=== PATIENT | female | born 1960 | race Caucasian/White ===

== ENCOUNTER → 2017-07-04 | Outpatient (CLI) | payer BC ==
[~2017-07-04] MED LIST: FIBER PO; OMEG10007 PO
--- NOTE | 2017-07-04 14:31 | MAMMOGRAPHY REPORT ---
BILATERAL DIGITAL SCREENING MAMMOGRAM TOMOSYNTHESIS WITH CAD: 07/04/2017 CLINICAL HISTORY: Routine screening. Patient has no complaints. TECHNIQUE: Breast tomosynthesis in addition to standard 2D mammography was performed. Current study was also evaluated with a Computer Aided Detection (CAD) system. COMPARISON: Comparison is made to exams dated: 05/11/2016 mammogram, 03/04/2015 mammogram, 05/16/2013 m ammogram - [facility], 04/25/2012 mammogram, 04/07/2011 mammogram, and 09/11/2009 mamm ogram - [facility]. BREAST COMPOSITION: There are scattered areas of fibroglandular density in both breasts. FINDINGS: There is an area of architectural distortion in the lateral, middle one third of the right breast, best seen on the cc view. No scar marker is seen in the right breast to denote a skin surgi richie scar and suggest prior surgery. Therefore, additional spot compression tomosynthesis views with placement of any scar markers prior to imaging is recommended. Additional targeted ultrasound may be needed. There are diffuse bilateral benign-appearing punctate microcalcifications. No other suspicious mass, architectural distortion or cluster of microcalcifications is seen. IMPRESSION: ACR BI-RADS CATEGORY 0: INCOMPLETE EVALUATION: NEED ADDITIONAL IMAGING EVALUATION The area of architectural distortion in the lateral right breast needs additional evaluation. The patient will be called to schedule an appointment. Approximately 10% of breast cancers are not detected with mammography. A negative mammographic report should not delay biopsy if a clinically suggestive mass is present. Dannielle Hallman M.D. ay/:07/04/2017 12:16:53 Tire Cord Weaver: Pao BRINK,Sindhu, M, [facility] letter sent: Addl Imaging 0 BI-RADS Code: ACR BI-RADS Category 0: Incomplete Evaluation: Need Additional Imaging Evaluation
== END | disposition home or self-care (01) ==
LOC: C.MAMM 11:24
PROVIDERS: ATTEND Family Medicine
DX: Z12.31 Encounter for screening mammogram for malignant neoplasm of breast (principal); N64.89 Other specified disorders of breast

== ENCOUNTER → 2017-07-18 | Outpatient (CLI) | payer BC ==
--- NOTE | 2017-07-18 14:26 | MAMMOGRAPHY REPORT ---
UNILATERAL RIGHT DIGITAL DIAGNOSTIC MAMMOGRAM TOMOSYNTHESIS AND TARGETED RIGHT ULTRASOUND: 07/18/2017 CLINICAL HISTORY: 57-year-old woman called back from screening mammography for a possible area of arc hitectural distortion in the lateral right breast. No prior right breast surgery or surgical abscess drainages. TECHNIQUE: Spot compression right CC and MLO tomosynthesis images were obtained. COMPARISON: Comparison is made to exams dated: 07/04/2017 mammogram, 05/11/2016 mammogram, 03/04/2015 mammogram, 05/16/2013 mammogram - [facility], 04/25/2012 mammogram, and 04/07/2011 [facility]. BREAST COMPOSITION: There are scattered areas of fibroglandular density in the right breast. FINDINGS: There is a persistent subtle area of architectural distortion in the upper outer middle on e third of the right breast, best appreciated on the spot compression CC views (CC tomosynthesis slic e and ). No other definite areas of architectural distortion identified. There are a few scattered benign-appearing calcifications throughout the right breast. Targeted ultrasound was performed in the upper outer quadrant of the right breast was assessed for th e area of distortion. In the 10:30 right breast, 5 cm from the nipple, there is a subtle ill-defined and indistinct mixed echogenicity slightly shadowing lesion which likely represents the area of dist ortion. Ultrasound measurements are difficult to obtain given the ill-defined nature but it measures approximately 10.5 x 6.9 x 8.5 mm. Differential considerations include radial scar and carcinoma. Definitive characterization with an ultrasound-guided core needle biopsy is recommended. It should b e noted that while evaluating this lesion with ultrasound and obtaining measurements, the patient als o reported pain right over this particular lesion. IMPRESSION: ACR BI-RADS CATEGORY 4: SUSPICIOUS, TARGETED ULTRASOUND ACR BI-RADS CATEGORY 4: SUSPICIO US 1. Ultrasound guided core biopsy is recommended for an ill-defined mixed echogenicity partially shad owing lesion in the 10:30 right breast, 5 cm from the nipple, identified on ultrasound, thought to co rrelate with the subtle mammographic distortion. These results and recommendations were discussed with the patient at the time of the exam. She tenta tively scheduled the right breast biopsy prior to leaving our department. Approximately 10% of breast cancers are not detected with mammography. A negative mammographic report should not delay biopsy if a clinically suggestive mass is present. Dannielle Hallman M.D. ay/:07/18/2017 12:45:22 Nail Professional: Megha BRINK(Sindhu)(M), [facility] letter sent: Abnormal 4/5 BI-RADS Code: ACR BI-RADS Category 4: Suspicious Ultrasound BI-RADS: ACR BI-RADS Category 4: Suspici ous
== END | disposition home or self-care (01) ==
LOC: C.MAMM 10:42
PROVIDERS: ATTEND Family Medicine
DX: R92.8 Other abnormal and inconclusive findings on diagnostic imaging of breast (principal); N64.89 Other specified disorders of breast

== ENCOUNTER → 2017-07-26 | Outpatient (CLI) | payer BC ==
--- NOTE | 2017-07-26 08:16 | Discharge Instructions ---
Discharge Instructions Procedure Procedure Date: Jul 26, 2017. Reason for visit: Right Distortion. Discharge Discharge Date: Jul 26, 2017. Discharge Diagnosis: status post breast biopsy Instructions Activity Recommendations: Additional Limitations (see below) Return to School/Work: no limitations Recommended Home Diet: No Limitations Provider Instructions: ACTIVITY RECOMMENDATIONS: * No lifting, pushing, pulling or exercising the affected side for three days. RETURN TO SCHOOL/WORK: * You may return to work/school after the procedure, but do not perform any strenuous activities for 24 to 48 hours. MEDICATIONS: * Tylenol (two 325 mg) every four to six hours if needed for mild pain (if not allergic to Tylenol). DIET: * Resume previous diet. SPECIAL CARE INSTRUCTIONS: * Keep biopsy site dry for 24 hours. May shower after 24 hours, but do not soak (bathe) incision. * May remove Tegaderm (plastic patch) tomorrow AFTER showering. * Leave the steri-strips on for one week. Allow the steri-strips to fall off by themselves. If not off after one week, you may remove them. You may place a Bandaid crosswise over the strips, if desired. * Apply ice 10 minutes on and 10 minutes off as needed. * Wear a bra at bedtime to sleep more comfortably for 2-3 days. * Your referring physician should have the results after approximately 5 to 7 business days. * Call for unusual bleeding, fever, drainage, etc or if you have any questions call during normal business hours or after hours call Dr Pierce, [phone]. FOLLOW UP VISIT: Follow-up with Referring Physician as scheduled. Allergies Coded Allergies: No Known Allergies (Verified Allergy, Unknown, 04/29/04) Cricket Harper Recommendations: Call your doctor if: * Temperature above 101 degrees * Pain not relieved by pain medicine ordered * There is increased drainage or redness from any incision * You have any unanswered questions or concerns. Your Doctors Instructions noted above were prepared by provider Yennifer Pierce. Patient Signature Section: Patient Instructions Signature Page Eliana Wooten Patient (or Guardian) Signature/Date: I have read and understand the instructions given to me by my caregivers. Caregiver/RN/Doctor Signature/Date: The above-named patient and/or guardian has received patient instructions on this date. + Original Patient Signature Page (only) stays with chart. Please make copy for patient.
--- NOTE | 2017-07-26 15:58 | MAMMOGRAPHY REPORT ---
ULTRASOUND GUIDED BIOPSY RIGHT BREAST: 07/26/2017 CLINICAL HISTORY: Mixed echogenicity lesion in the right 10:30 breast on ultrasound, thought to corre spond with mammographic architectural distortion. PATIENT CONSENT: The procedure, risks and benefits were discussed with the patient and informed writt en consent was obtained. A timeout was performed immediately prior to the procedure. PROCEDURE DESCRIPTION: With ultrasound guidance, aseptic technique, and lidocaine as the local anesth etic (1% lidocaine to anesthetize the skin and 1% lidocaine with epinephrine to anesthetize the deepe r tissues), the mixed echogenicity lesion in the right 10:30 breast was sampled 5 times with a 14-gau Biom'Up biopsy needle. Immediately thereafter, with ultrasound guidance, aseptic technique, and lidocaine as the local anesthetic, a metallic localizer clip was placed at the biopsy site. Direct p ressure was applied to the site immediately post procedure and hemostasis was achieved. Postprocedur e unilateral mammograms were performed to confirm clip placement. The patient tolerated the procedur e without complication. She was given wound care instructions. The specimens were sent to pathology for analysis. COMPARISON: Comparison is made to exams dated: 07/18/2017 ultrasound, 07/18/2017 mammogram, 07/04/2017 mammogram, 05/11/2016 mammogram, 03/04/2015 mammogram, and 05/16/2013 mammogram - [facility]. IMPRESSION: ULTRASOUND GUIDED BIOPSY Ultrasound-guided core needle biopsy of the mixed echogenicity lesion in the right 10:30 breast, with clip placement. The patient will receive pathology results from her referring provider. Yennifer Pierce M.D. /:07/26/2017 08:18:29 Tank Wagon Operator: Amber BRINK(R)(M), [facility]
--- NOTE | 2017-07-26 16:03 | MAMMOGRAPHY REPORT ---
UNILATERAL RIGHT DIGITAL DIAGNOSTIC MAMMOGRAM TOMOSYNTHESIS: 07/26/2017 CLINICAL HISTORY: Status post right breast ultrasound-guided biopsy. TECHNIQUE: Breast tomosynthesis in addition to standard 2D mammography was performed. Postprocedura l right CC and ML tomosynthesis images including C views were obtained. COMPARISON: Comparison is made to exams dated: 07/18/2017 ultrasound, 07/18/2017 mammogram, 07/04/2017 mammogram, 05/11/2016 mammogram, 03/04/2015 mammogram, and 05/16/2013 mammogram - [facility]. BREAST COMPOSITION: There are scattered areas of fibroglandular density in the right breast. FINDINGS: A new ribbon-shaped biopsy marker clip is seen in the right upper outer quadrant status po st ultrasound guided biopsy of the mixed echogenicity lesion in the right 10:30 breast. The biopsy m arker clip is located slightly lateral to the possible subtle architectural distortion described on t he recent diagnostic mammogram report. No significant postbiopsy hematoma is seen. IMPRESSION: POST PROCEDURE IMAGING FOR MARKER PLACEMENT New biopsy marker clip status post right breast ultrasound-guided biopsy. Pathology results are pend ing. Approximately 10% of breast cancers are not detected with mammography. A negative mammographic report should not delay biopsy if a clinically suggestive mass is present. Yennifer Pierce M.D. /:07/26/2017 08:29:11 [place]: Amber BRINK(R)(M), [facility] BI-RADS Code: Post Procedure Imaging For Marker Placement
== END | disposition home or self-care (01) ==
LOC: C.MAMM 07:50
PROVIDERS: ATTEND Family Medicine
DX: N64.9 Disorder of breast, unspecified (principal); N60.11 Diffuse cystic mastopathy of right breast; N60.81 Other benign mammary dysplasias of right breast

== ENCOUNTER 2017-12-01 20:43 | Emergency (ER) | payer BC, OTHER ==
[~2017-12-01] VITALS: Ht 162.6 cm; Wt 111.7 kg
[2017-12-01 20:57] VITALS: TEMP 36.6; Ht 162.6 cm; Wt 111.7 kg
[2017-12-01] MEDS ORDERED: FERR324T PO (21:40)
[2017-12-01] MEDS ORDERED: MULT-506 PO (21:40)
[2017-12-01] MEDS ORDERED: SODIUM CHLORIDE 0.9% 1000ML 1,000 ML IV ONE (22:15)
[2017-12-01] MEDS ORDERED: NITROGLYCERIN 2% OINTMENT 30GM TUBE EXT ONE (22:15)
--- NOTE | 2017-12-01 22:48 | DIAGNOSTIC IMAGING REPORT ---
CHEST ONE VIEW PORTABLE CLINICAL HISTORY: Chest/Left arm pain pain COMPARISON STUDY: 12/29/2014 FINDINGS: The bones soft tissues and hemidiaphragms are normal. The cardiomediastinal silhouette is normal. The lungs are clear. The pulmonary vasculature is normal. IMPRESSION: Negative chest. The above report was generated using voice recognition software. It may contain grammatical, syntax or spelling errors. Electronically signed by: Titi Lucero M.D. 12/01/2017 10:47 PM Dictated Date/Time: 12/01/2017 10:47 PM
[2017-12-01 22:49] VITALS: O2SAT 99
[2017-12-01 23:30] LABS: BASO % 0.5 %; BASO ABS # 0.03 K/uL (0-0.2); EOS % 3.2 %; EOS ABS # 0.21 K/uL (0-0.5); HEMATOCRIT 40.7 % (37-47); HEMOGLOBIN 13.5 g/dL (12.0-16.0); IG# 0.01 K/uL (0.00-0.02); LYMPH % 35.7 %; LYMPH ABS # 2.32 K/uL (1.2-3.4); MEAN CELL VOLUME 86.4 fL (80-100); MEAN CORPUSCULAR HEMOGLOBIN 28.7 pg (25-34); MEAN CORPUSCULAR HGB CONC 33.2 g/dl (32-36); MEAN PLATELET VOLUME 11.6 fL (7.4-10.4); MONO % 9.4 %; MONO ABS # 0.61 K/uL (0.11-0.59); NEUT ABS # 3.31 K/uL (1.4-6.5); PLATELET COUNT 235 K/uL (130-400); RED CELL DISTRIBUTION WIDTH CV 14.6 % (11.5-14.5); RED CELL DISTRIBUTION WIDTH SD 45.7 fL (36.4-46.3); WHITE BLOOD COUNT 6.49 K/uL (4.8-10.8)
[2017-12-01 23:51] LABS: PTT PATIENT 26.5 SECONDS (21.0-31.0)
[2017-12-01 23:55] LABS: ALBUMIN 3.8 gm/dl (3.4-5.0); CALCIUM 8.9 mg/dl (8.5-10.1); CREATININE 0.84 mg/dl (0.60-1.20); POTASSIUM 3.8 mmol/L (3.5-5.1)
[2017-12-02 00:06] LABS: TOTAL PROTEIN 7.6 gm/dl (6.4-8.2)
[2017-12-02] MEDS ORDERED: POLYETHYLENE (MIRALAX) 17 GM PACK PO PRN (02:00)
[2017-12-02] MEDS ORDERED: ONDANSETRON INJ 2 MG/ML 2 ML VIAL IV PRN (02:00)
[2017-12-02] MEDS ORDERED: ACETAMINOPHEN 325 MG TAB PO PRN (02:00)
--- NOTE | 2017-12-02 02:06 | History and Physical ---
History & Physical Date & Time of Service: Dec 02, 2017 at 02:04 Chief Complaint: L Arm Pain Primary Care Physician: Eric Maravilla MD History of Present Illness Source: patient Past Medical/Surgical History Medical Problems: (1) Belching (2) Chest pain (3) GERD (gastroesophageal reflux disease) (4) Hiatal hernia (5) Leaky heart valve (6) Medial meniscus tear (7) Precordial chest pain Social History Smoking Status: Never Smoker Marital Status: Occupational Status: unemployed Immunizations History of Influenza Vaccine: No History of Tetanus Vaccine?: Yes History of Pneumococcal: No History of Hepatitis B Vaccine: No Allergies Coded Allergies: No Known Allergies (Verified , 12/01/17) Home Medications Scheduled Ferrous Gluconate (Iron Supplement), 324 MG PO DAILY Fiber Laxative (Fiber Laxative), 1 DOSE PO DAILY Fish Oil ([place]-3), 1 CAP PO DAILY Multivitamin (Multivitamin), 1 TAB PO DAILY Review of Systems Constitutional: No fever, No chills Eyes: No worsening of vision Respiratory: No cough, No sputum Abdomen: No pain, No nausea, No vomiting, No diarrhea Musculoskeletal: No joint pain Genitourinary - Female: No dysuria, No urinary frequency, No urinary urgency Neurologic: No memory loss, No paralysis Psychiatric: No depression symptoms Endocrine: No fatigue Hematologic / Lymphatic: No abnormal bleeding/bruising Physical Exam Vital Signs Date Time Temp Pulse Resp B/P (MAP) Pulse Ox O2 Delivery O2 Flow Rate FiO2 12/02/17 01:06 79 18 94 Room Air 12/02/17 01:02 71 12/02/17 01:01 117/64 12/02/17 00:36 71 12 96 Room Air 12/02/17 00:31 158/78 12/02/17 00:30 72 13 96 Room Air 12/02/17 00:01 140/71 Room Air 12/02/17 00:00 73 13 95 Room Air 12/01/17 23:31 127/73 12/01/17 23:30 71 13 97 Room Air 12/01/17 23:16 66 14 147/86 98 Room Air 12/01/17 22:49 99 Room Air 12/01/17 22:47 69 18 143/91 97 Room Air 12/01/17 21:02 70 12/01/17 20:57 36.6 78 20 169/89 96 Room Air General Appearance: WD/WN, no apparent distress Head: normocephalic ENT: hearing grossly normal Respiratory/Chest: chest non-tender, lungs clear, normal breath sounds Cardiovascular: regular rate, rhythm Abdomen/GI: normal bowel sounds, non tender, soft Extremities/Musculoskelatal: no pedal edema Neurologic/Psych: alert, normal mood/affect, oriented x 3 Skin: normal color Diagnostics Laboratory Results Results Past 24 Hours Test 12/01/17 23:00 12/01/17 23:10 12/02/17 00:20 Range/Units White Blood Count 6.49 4.8-10.8 K/uL Red Blood Count 4.71 4.2-5.4 M/uL Hemoglobin 13.5 12.0-16.0 g/dL Hematocrit 40.7 37-47 % Mean Corpuscular Volume 86.4 80-100 fL Mean Corpuscular Hemoglobin 28.7 25-34 pg Mean Corpuscular Hemoglobin Concent 33.2 32-36 g/dl Platelet Count 235 130-400 K/uL Mean Platelet Volume 11.6 7.4-10.4 fL Neutrophils (%) (Auto) 51.0 % Lymphocytes (%) (Auto) 35.7 % Monocytes (%) (Auto) 9.4 % Eosinophils (%) (Auto) 3.2 % Basophils (%) (Auto) 0.5 % Neutrophils # (Auto) 3.31 1.4-6.5 K/uL Lymphocytes # (Auto) 2.32 1.2-3.4 K/uL Monocytes # (Auto) 0.61 0.11-0.59 K/uL Eosinophils # (Auto) 0.21 0-0.5 K/uL Basophils # (Auto) 0.03 0-0.2 K/uL RDW Standard Deviation 45.7 36.4-46.3 fL RDW Coefficient of Variation 14.6 11.5-14.5 % Immature Granulocyte % (Auto) 0.2 % Immature Granulocyte # (Auto) 0.01 0.00-0.02 K/uL Prothrombin Time 10.6 9.0-12.0 SECONDS Prothromb Time International Ratio 1.0 0.9-1.1 Activated Partial Thromboplast Time 26.5 21.0-31.0 SECONDS Partial Thromboplastin Ratio 1.0 Sodium Level 141 136-145 mmol/L Potassium Level 3.8 3.5-5.1 mmol/L Chloride Level 109 98-107 mmol/L Carbon Dioxide Level 26 21-32 mmol/L Anion Gap 6.0 3-11 mmol/L Blood Urea Nitrogen 14 7-18 mg/dl Creatinine 0.84 0.60-1.20 mg/dl Est Creatinine Clear Calc Drug Dose 89.3 ml/min Estimated GFR () 88.8 Estimated GFR (Non- 76.6 BUN/Creatinine Ratio 17.0 10-20 Random Glucose 95 70-99 mg/dl Calcium Level 8.9 8.5-10.1 mg/dl Magnesium Level 2.1 1.8-2.4 mg/dl Total Bilirubin 0.4 0.2-1 mg/dl Aspartate Amino Transf (AST/SGOT) 33 15-37 U/L Alanine Aminotransferase (ALT/SGPT) 53 12-78 U/L Alkaline Phosphatase 129 45-117 U/L Total Protein 7.6 6.4-8.2 gm/dl Albumin 3.8 3.4-5.0 gm/dl Globulin 3.8 2.5-4.0 gm/dl Albumin/Globulin Ratio 1.0 0.9-2 Lipase 259 73-393 U/L Thyroid Stimulating Hormone (TSH) 1.990 0.300-4.500 uIu/ml Bedside D-Dimer 385 0-450 ng/mlFEU Bedside Troponin I < 0.030 0-0.045 ng/ml Urine Color YELLOW Urine Appearance CLEAR CLEAR Urine pH 5.0 4.5-7.5 Urine Specific [place] 1.022 1.000-1.030 Urine Protein NEG NEG Urine Glucose (UA) NEG NEG Urine Ketones NEG NEG Urine Occult Blood NEG NEG Urine Nitrite NEG NEG Urine Bilirubin NEG NEG Urine Urobilinogen NEG NEG Urine Leukocyte Esterase SMALL NEG Urine WBC (Auto) 10-30 0-5 /hpf Urine RBC (Auto) 0-4 0-4 /hpf Urine Hyaline Casts (Auto) 1-5 0-5 /lpf Urine Epithelial Cells (Auto) >30 0-5 /lpf Urine Bacteria (Auto) NEG NEG Microbiology Results 12/02/17 Urine Culture, Received Pending Diagnostic Radiology CHEST ONE VIEW PORTABLE CLINICAL HISTORY: Chest/Left arm pain pain COMPARISON STUDY: 12/29/2014 FINDINGS: The bones soft tissues and hemidiaphragms are normal. The cardiomediastinal silhouette is normal. The lungs are clear. The pulmonary vasculature is normal. IMPRESSION: Negative chest. The above report was generated using voice recognition software. It may contain grammatical, syntax or spelling errors. Electronically signed by: Titi Lucero M.D. 12/01/2017 10:47 PM Dictated Date/Time: 12/01/2017 10:47 PM Impression Resuscitation Status VTE Prophylaxis Will order VTE Prophylaxis: Yes
[2017-12-02 03:01] VITALS: BP 141/80
[2017-12-02 03:06] VITALS: PULSE 68; O2SAT 95
[2017-12-02] MEDS ORDERED: IV FLUIDS COMPLETED PRN (04:15)
[2017-12-02] MEDS ORDERED: FERROUS GLUCONATE 324 MG TAB PO SCH (09:00)
[2017-12-02] MEDS ORDERED: MULTIVITAMIN TAB PO SCH (09:00)
[2017-12-02] MEDS ORDERED: FIBER LAXATIVE PO SCH (09:00)
--- NOTE | 2017-12-02 22:18 | EMERGENCY ROOM VISIT NOTE ---
History First contact with patient: 21:44 Chief Complaint: CARDIAC ASSESSMENT Stated Complaint: L ARM PAIN History of Present Illness The patient is a 57 year old female who presents to the Emergency Room with complaints of a dull ache in her left arm that has been off and on for the past 2 or 3 days. The patient does not recall injury or trauma. She states that she noticed her symptoms 2 days ago while on a stationary bicycle at the gym. She states that she was riding for 20-30 minutes when she began having discomfort. The patient stopped, and went back the next day, where this happened a second time. The patient went to the gym this morning for a third time, and states that the arm pain occurred after only a few minutes and this time had associated shortness of breath. The patient does have a reported history of dysrhythmia and anginal symptoms in the past, which she estimates were evaluated around 10 years ago. She does not regularly follow with cardiology and does not believe she has a family history of cardiac disease. At this time the patient's not having distinct chest pain or shortness of breath. Her symptoms are primarily in the left arm and into the left shoulder. The patient went to the [facility] urgent care clinic [facility], where she was given 324 mg aspirin and sent to the ER. The patient rates her current discomfort a 5/10. Review of Systems More than 10 systems were reviewed and otherwise negative with the exception of history of present illness. Past Medical/Surgical History Medical Problems: (1) GERD (gastroesophageal reflux disease) (2) Hiatal hernia (3) Leaky heart valve (4) Medial meniscus tear (5) Precordial chest pain Family History No pertinent family history Social History Smoking Status: Never Smoker Marital Status: Housing Status: lives with family Occupation Status: unemployed Current/Historical Medications Scheduled Ferrous Gluconate (Iron Supplement), 324 MG PO DAILY Fiber Laxative (Fiber Laxative), 1 DOSE PO DAILY Fish Oil (Alstead-3), 1 CAP PO DAILY Multivitamin (Multivitamin), 1 TAB PO DAILY Physical Exam Vital Signs Date Time Temp Pulse Resp B/P (MAP) Pulse Ox O2 Delivery O2 Flow Rate FiO2 12/02/17 03:06 68 14 95 Room Air 12/02/17 03:01 141/80 12/02/17 02:36 70 14 94 Room Air 12/02/17 02:31 140/65 12/02/17 02:11 73 12 94 Room Air 12/02/17 02:02 120/65 12/02/17 01:31 116/67 12/02/17 01:11 70 16 92 Room Air 12/02/17 01:06 79 18 94 Room Air 12/02/17 01:02 71 12/02/17 01:01 117/64 12/02/17 00:36 71 12 96 Room Air 12/02/17 00:31 158/78 12/02/17 00:30 72 13 96 Room Air 12/02/17 00:01 140/71 Room Air 12/02/17 00:00 73 13 95 Room Air 12/01/17 23:31 127/73 12/01/17 23:30 71 13 97 Room Air 12/01/17 23:16 66 14 147/86 98 Room Air 12/01/17 22:49 99 Room Air 12/01/17 22:47 69 18 143/91 97 Room Air 12/01/17 21:02 70 12/01/17 20:57 36.6 78 20 169/89 96 Room Air Physical Exam VITALS: Vitals are noted on the nurse's note and reviewed by myself. Vital signs stable. GENERAL: Well-developed, well-nourished, white female, who is in no acute distress and resting comfortably. Patient is cooperative with the examination. HEAD: Normocephalic atraumatic. NECK: Supple without nuchal rigidity. No lymphadenopathy. No thyromegaly. Cervical spine is nontender. HEART: Regular rate and rhythm without murmurs gallops or rubs. LUNGS: Clear to auscultation bilaterally without wheezes, rales or rhonchi. No retractions or accessory muscle use. ABDOMEN: Positive normal bowel sounds x 4. Soft, nontender, without masses or organomegaly. No guarding or rebound tenderness. MUSCULOSKELETAL: No muscle atrophy, erythema, or edema noted. Full range of motion in all extremities. No tenderness to palpation. Normal gait. Strength 5/5 throughout. NEURO: Patient was alert and oriented to person place and time. CN II through XII grossly intact. Medical Decision & Procedures ER Provider Diagnostic Interpretation: CHEST ONE VIEW PORTABLE CLINICAL HISTORY: Chest/Left arm pain pain COMPARISON STUDY: 12/29/2014 FINDINGS: The bones soft tissues and hemidiaphragms are normal. The cardiomediastinal silhouette is normal. The lungs are clear. The pulmonary vasculature is normal. IMPRESSION: Negative chest. Laboratory Results 12/01/17 23:00 Red Blood Count 4.71, Mean Corpuscular Volume 86.4, Mean Corpuscular Hemoglobin 28.7, Mean Corpuscular Hemoglobin Concent 33.2, Mean Platelet Volume 11.6, Neutrophils (%) (Auto) 51.0, Lymphocytes (%) (Auto) 35.7, Monocytes (%) (Auto) 9.4, Eosinophils (%) (Auto) 3.2, Basophils (%) (Auto) 0.5, Neutrophils # (Auto) 3.31, Lymphocytes # (Auto) 2.32, Monocytes # (Auto) 0.61, Eosinophils # (Auto) 0.21, Basophils # (Auto) 0.03 12/01/17 23:00 Test 12/01/17 23:00 12/01/17 23:10 12/02/17 00:20 White Blood Count 6.49 K/uL (4.8-10.8) Red Blood Count 4.71 M/uL (4.2-5.4) Hemoglobin 13.5 g/dL (12.0-16.0) Hematocrit 40.7 % (37-47) Mean Corpuscular Volume 86.4 fL (80-100) Mean Corpuscular Hemoglobin 28.7 pg (25-34) Mean Corpuscular Hemoglobin Concent 33.2 g/dl (32-36) Platelet Count 235 K/uL (130-400) Mean Platelet Volume 11.6 fL (7.4-10.4) Neutrophils (%) (Auto) 51.0 % Lymphocytes (%) (Auto) 35.7 % Monocytes (%) (Auto) 9.4 % Eosinophils (%) (Auto) 3.2 % Basophils (%) (Auto) 0.5 % Neutrophils # (Auto) 3.31 K/uL (1.4-6.5) Lymphocytes # (Auto) 2.32 K/uL (1.2-3.4) Monocytes # (Auto) 0.61 K/uL (0.11-0.59) Eosinophils # (Auto) 0.21 K/uL (0-0.5) Basophils # (Auto) 0.03 K/uL (0-0.2) RDW Standard Deviation 45.7 fL (36.4-46.3) RDW Coefficient of Variation 14.6 % (11.5-14.5) Immature Granulocyte % (Auto) 0.2 % Immature Granulocyte # (Auto) 0.01 K/uL (0.00-0.02) Prothrombin Time 10.6 SECONDS (9.0-12.0) Prothromb Time International Ratio 1.0 (0.9-1.1) Activated Partial Thromboplast Time 26.5 SECONDS (21.0-31.0) Partial Thromboplastin Ratio 1.0 Anion Gap 6.0 mmol/L (3-11) Est Creatinine Clear Calc Drug Dose 89.3 ml/min Estimated GFR () 88.8 Estimated GFR (Non- 76.6 BUN/Creatinine Ratio 17.0 (10-20) Calcium Level 8.9 mg/dl (8.5-10.1) Magnesium Level 2.1 mg/dl (1.8-2.4) Total Bilirubin 0.4 mg/dl (0.2-1) Aspartate Amino Transf (AST/SGOT) 33 U/L (15-37) Alanine Aminotransferase (ALT/SGPT) 53 U/L (12-78) Alkaline Phosphatase 129 U/L (45-117) Total Protein 7.6 gm/dl (6.4-8.2) Albumin 3.8 gm/dl (3.4-5.0) Globulin 3.8 gm/dl (2.5-4.0) Albumin/Globulin Ratio 1.0 (0.9-2) Lipase 259 U/L (73-393) Thyroid Stimulating Hormone (TSH) 1.990 uIu/ml (0.300-4.500) Bedside D-Dimer 385 ng/mlFEU (0-450) Bedside Troponin I < 0.030 ng/ml (0-0.045) Urine Color YELLOW Urine Appearance CLEAR (CLEAR) Urine pH 5.0 (4.5-7.5) Urine Specific [place] 1.022 (1.000-1.030) Urine Protein NEG (NEG) Urine Glucose (UA) NEG (NEG) Urine Ketones NEG (NEG) Urine Occult Blood NEG (NEG) Urine Nitrite NEG (NEG) Urine Bilirubin NEG (NEG) Urine Urobilinogen NEG (NEG) Urine Leukocyte Esterase SMALL (NEG) Urine WBC (Auto) 10-30 /hpf (0-5) Urine RBC (Auto) 0-4 /hpf (0-4) Urine Hyaline Casts (Auto) 1-5 /lpf (0-5) Urine Epithelial Cells (Auto) >30 /lpf (0-5) Urine Bacteria (Auto) NEG (NEG) Medications Administered Medications (Trade) Dose Ordered Sig/Mireya Route Start Time Stop Time Status Last Admin Dose Admin Sodium Chloride 1,000 ml @ 999 mls/hr Q1H1M ONCE IV 12/01/17 22:15 12/01/17 23:15 DC 12/01/17 23:16 999 MLS/HR Nitroglycerin (Nitroglycerin 2% Oint) 1 inch NOW ONCE EXT 12/01/17 22:15 12/01/17 22:16 DC 12/01/17 22:34 1 INCH ECG Per My Interpretation Change: Normal sinus rhythm @80 bpm Low voltage QRS Borderline ECG When compared with ECG of 30-DEC-2014 07:27, No significant change ED Course Physical exam and history were performed. Nursing notes, EMR, and Medication List were personally reviewed. Patient appears to have vague left-sided arm pain that appears to worsen with activity. The arm itself is without significant or reproducible findings, causing concern for other etiology. Her pain is dull and evidently she does have a cardiac history. Review of the EMR shows the patient had normal stress test at this facility around 3 years ago. EKG was performed and is as above without acute ST elevation. IV access was established and labs are obtained. The patient was hydrated with normal saline and Nitropaste was placed. Chest x- ray was performed that she was put on a satellite project site monitor. The patient's blood work is as above and was reviewed. She does not have a significantly elevated white blood cell count, gross anemia, bandemia, or significant electrolyte imbalance. Lipase and transaminases are not diagnostic. Troponin and d-dimer 1 are both negative. Chest x-ray was reviewed by myself and radiology as showing no acute process. The patient remained in normal sinus rhythm while on the satellite project site monitor. On reevaluation the patient did have some mild improvement, but not significant improvement of her left arm discomfort after the Nitropaste. I discussed options of care with the patient, and ultimately felt it would be reasonable to have her stay for cardiac observation. I discussed the case with case management and the on-call hospitalist who agreed to evaluate the patient. Prior to full hospitalist evaluation, the patient informed me that she would like to be discharged home. She has significant concerns about staying in the hospital under observation status, as this was thoroughly explained to her by case management. The patient and I had a very lengthy conversation regarding this decision, the patient continued to report that she would like to go home. The patient is confident that she can follow with her primary care physician the next few days, which is appropriate. She was thoroughly invited back to the ER with any new, worsening, or concerning symptoms. She was pleased with this plan and was discharged home under the care of her family. The chart was completed utilizing [email or web address] Speech Voice Recognition Software. Grammatical errors, random word insertions, pronoun errors, and incomplete sentences are an occasional consequence of this system due to software limitations, ambient noise, and hardware issues. Any formal questions or concerns about the content, text, or information contained within the body of this dictation should be directly addressed to the provider for clarification. . Medical Decision Differential diagnosis includes, but is not limited to: Myocardial infarction, dysrhythmia, pericarditis, pneumothorax, aortic aneurysm/dissection, DVT/PE, anxiety, GERD, PUD, electrolyte imbalance, thyroid disorder, pneumonia, bronchitis, pancreatitis, and others Impression Primary Impression: Intermittent left-sided chest pain Additional Impression: Left arm pain Departure Information Dispostion Home / Self-Care Condition FAIR Forms IMPORTANT VISIT INFORMATION Patient Instructions My [facility] Additional Instructions You were seen and evaluated today on an emergency basis only. This is not a substitute for, or an effort to provide, complete comprehensive medical care. It is not possible to recognize and treat all injuries or illnesses in a single emergency department visit. For this reason it is recommended that you followup with your primary care physician on Monday for ongoing care and evaluation. Return to the emergency department immediately with any concerning symptoms. You are welcome to return to the emergency department anytime with new, worsening, or concerning symptoms. Problem Qualifiers
== END 2017-12-02 03:24 | disposition home or self-care (01) ==
LOC: C.EDB 20:43 → EDBD 20:43 → CANRESERV 12-02 02:24 → ENRESERV 12-02 02:24 → CANBEDREQ 12-02 02:53 → C.EDB 12-02 03:24
DX: R07.9 Chest pain, unspecified (principal); M79.602 Pain in left arm

== ENCOUNTER 2025-04-21 22:40 | Inpatient (IN) ==
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
[2025-04-21 23:50] LABS: Hematocrit (blood only) 41.8 % (37.0-47.0); Hemoglobin 13.6 g/dl (12.0-16.0); Immature Granulocytes # (auto) 0.02 K/uL (0.01-0.20); Immature Granulocytes % (auto) 0.2 %; Mean Corpuscular Hemoglobin 27.8 pg (25.0-34.0); Mean Corpuscular Volume 85.5 fL (80.0-100.0); Platelet Count 190 K/uL (130-400); RDW Standard Deviation 47.1 fL (36.4-46.3); Red Blood Count 4.89 M/uL (4.20-5.40); White Blood Count 9.86 K/ul (4.8-10.8)
[2025-04-21] MEDS: FAMOTIDINE 20MG IV PUSH 20 MG/5 ML SYR IV STA (23:57)
[2025-04-21] MEDS: ONDANSETRON INJ 2 MG/ML 2 ML VIAL IV STA (23:57)
[2025-04-21] MEDS: ACETAMINOPHEN 1,000 MG/100 ML VIAL IV STA (23:57)
[2025-04-21] MEDS: SODIUM CHLORIDE 0.9% 1,000 ML IV STA (23:57)
[2025-04-22 00:11] LABS: Alanine Aminotransferase 85.0 U/L (7-52); Albumin Globulin Ratio 1.1 (0.9-2); Alkaline Phosphatase 117.0 U/L (34-104); Anion Gap 9.0 (3-11); Bilirubin,Total 1.9 mg/dl (0.2-1.0); Blood Urea Nitrogen 15.0 mg/dl (6-23); Calcium 9.4 mg/dl (8.6-10.3); Carbon Dioxide 26.0 mmol/L (21-32); Chloride 103.0 mmol/L (98-107); Creatinine Clr Calc Pharmacy 92.1 ml/min; Globulin 3.6 gm/dl (2.5-4.0); Glucose 149.0 mg/dl (70-99(Fasting)); Lipase 45.0 U/L (11-82); Potassium 4.2 mmol/L (3.5-5.1); Sodium 138.0 mmol/L (136-145); Total Protein 7.7 gm/dl (6.0-8.3)
[2025-04-22 00:26] LABS: Appearance Urine Clear (Clear); Glucose Urine UA Negative (Negative)
[2025-04-22 00:35] LABS: Bacteria Urine Automated None Seen (None Seen); Cast Urine Automated 0-2 /lpf (0-2)
[2025-04-22] MEDS: OPTIRAY 320 100ml IV ONE (00:36)
--- NOTE | 2025-04-22 00:58 | Emergency Department Note ---
ED Visit Note I was consulted by the Advanced Practice Provider. I personally made/approved the management plan and take responsibility for the patient management. This includes the aspects of: -History/Physical -MDM
[2025-04-22 01:13] LABS: INR 1.0 (0.9-1.1); Partial Thromboplastin Time 28 Seconds (21-31); Prothrombin Time 11.3 Seconds (9.0-12.0)
--- NOTE | 2025-04-22 01:15 | CT Scan Report ---
EXAM: CT abd pelvis IV con only CLINICAL HISTORY: mid abd pain TECHNIQUE: Contiguous axial images were obtained from the level of the diaphragm to the pubic symphysis with intravenous contrast. Coronal and sagittal reconstructions were likewise performed and indicated to increase the sensitivity for detecting clinically relevant pathology. If IV contrast material had not been administered, the likelihood of detecting abnormalities relevant to the patient's condition would have been substantially decreased. CT scan was performed according to ALARA (as low as reasonably achievable). COMPARISON: None. FINDINGS: The visualized lung bases are clear. The liver is normal in size and attenuation. No focal liver lesions are seen. There is no intra or extrahepatic biliary ductal dilatation. Hepatic vasculature is patent. The gallbladder is distended and shows few soft calculi with mildly thickened edematous wall (wall thickness measures about 4-5 mm)..- suggestive of calculus cholecystitis. The spleen, pancreas, and adrenal glands are unremarkable. The kidneys are normal in size and attenuation. There is no hydronephrosis or perinephric fat stranding. No renal calculi or renal masses are identified. The ureters are normal in caliber and no ureteral calculi are seen. The bladder is normal in contour. Pelvic viscera are unremarkable. No focal or diffuse bowel wall thickening or evidence of bowel obstruction is identified. No imaging evidence of appendicitis. Abdominal and pelvic vasculature is patent. No adenopathy or fluid collections are seen. No aggressive appearing osseous lesions are identified. Superfical varicosities seen in visualised extend of left anetrior thigh. IMPRESSION: 1. Mild calculous cholecystitis. 2. Superfical varicosities seen in visualised extend of left anetrior thigh. Electronically signed by Rashaun Gomez 04-22-2025 01:15 AM
[2025-04-22] MEDS: PIPERACILLIN/TAZOBACTAM 4.5 GM/100 ML BAG IV ONE (03:29)
--- NOTE | 2025-04-22 03:40 | Ultrasound Report ---
EXAM: US gallbladder CLINICAL HISTORY: ruq pain, ? GB TECHNIQUE: Limited ultrasound of the liver and gallbladder was performed in greyscale and Doppler. Multiple images were obtained in transverse and longitudinal planes. COMPARISON: prior CT 04/20/2025 is reviewed. FINDINGS: Liver: Liver size: . It is enlarged in size, measuring 18.1 cm. It shows a diffuse increase in homogeneous parenchymal echogenicity. A small fat-sparing area is noted adjacent to the gallbladder. No evidence of cysts or masses. Hepatic vasculature appears normal. Gallbladder: The gallbladder is visualized and measures 5.6 cm in length. Multiple large gallstones are noted in the gallbladder lumen. The gallbladder wall is edematous, measuring 4.1 mm in thickness. A tiny echogenic focus measuring 2.7 mm is noted attached to the anterior gallbladder wall, suggestive of a polyp. Pain medicines were given before the ultrasound. Calixto's sign could not be assessed. Biliary Tree: Common bile duct diameter: 4.8 mm. The common bile duct is within normal limits in caliber and not dilated. No evidence of choledocholithiasis or biliary obstruction. Pancreas; Limited visualization. Obscured by bowel gases. Right kidney; No hydronephrosis is seen. The right renal pelvis is prominent. IMPRESSION: Hepatomegaly with fatty infiltration. stable Cholelithiasis with an edematous, thick gallbladder wall measuring 4.1 mm, concerning for acute cholecystitis. Lab workup with clinical correlation and follow-up is recommended. The Calixto sign could not be assessed due to pain medication before the ultrasound. Probable tiny anterior wall gallbladder polyp. Electronically signed by Jonathon South 04-22-2025 03:39 AM
[2025-04-22 03:45] LABS: Hep B Surface Ag with confirm Negative (Negative)
[2025-04-22 03:53] LABS: Hep C Ab Rflx HepCQuant RNA Negative (Negative)
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
[2025-04-22] MEDS ORDERED: MoRPHine SULFATE 4 MG/ML 1 ML CARP\\VIAL IV PRN (03:57)
[2025-04-22] MEDS ORDERED: PROMETHAZINE 12.5 MG/50.5 ML BAG IV PRN (03:57)
[2025-04-22] MEDS ORDERED: LORazepam 0.5 MG TAB PO PRN (03:57)
[2025-04-22] MEDS ORDERED: FAMOTIDINE 20 MG TAB PO PRN (04:21)
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
[2025-04-22 04:59] LABS: Hematocrit (blood only) 39.6 % (37.0-47.0); Hemoglobin 13.2 g/dl (12.0-16.0); Immature Granulocytes # (auto) 0.01 K/uL (0.01-0.20); Immature Granulocytes % (auto) 0.1 %; Mean Corpuscular Hemoglobin 28.6 pg (25.0-34.0); Mean Corpuscular Volume 85.7 fL (80.0-100.0); Platelet Count 189 K/uL (130-400); RDW Standard Deviation 47.0 fL (36.4-46.3); Red Blood Count 4.62 M/uL (4.20-5.40); White Blood Count 6.88 K/ul (4.8-10.8)
[2025-04-22 05:15] LABS: Alanine Aminotransferase 207.0 U/L (7-52); Albumin Globulin Ratio 1.2 (0.9-2); Alkaline Phosphatase 122.0 U/L (34-104); Anion Gap 8.0 (3-11); Bilirubin,Total 2.7 mg/dl (0.2-1.0); Blood Urea Nitrogen 12.0 mg/dl (6-23); Calcium 8.9 mg/dl (8.6-10.3); Carbon Dioxide 25.0 mmol/L (21-32); Chloride 108.0 mmol/L (98-107); Creatinine Clr Calc Pharmacy 110.0 ml/min; Globulin 3.1 gm/dl (2.5-4.0); Glucose 152.0 mg/dl (70-99(Fasting)); Potassium 4.2 mmol/L (3.5-5.1); Sodium 141.0 mmol/L (136-145); Total Protein 6.9 gm/dl (6.0-8.3)
[2025-04-22] MEDS: SODIUM CHLORIDE 0.9% 1,000 ML IV ONE (06:19)
[2025-04-22] MEDS: ACETAMINOPHEN 500 MG TAB PO PRN (06:28)
--- NOTE | 2025-04-22 06:44 | Magnetic Resonance Report ---
EXAM: MR MRCP CLINICAL HISTORY: Poss cholecystitis with elevated LFTs and T. bili TECHNIQUE: Multiplanar multisequence magnetic resonance imaging of the abdomen without intravenous contrast. COMPARISON: Prior US gall bladder 04/22/[address] abdomen pelvis 04/20/2025 was reviewed. FINDINGS: Liver: Normal size and morphology. Homogeneous signal intensity on T2-weighted images. No focal hepatic lesions. Gallbladder: Mildly thickened edematous wall 4 -5mm with multiple intraluminal stones ranging from 3-8mm coupled with biliary sludge, concerning for acute calcular cholecystitis. Cinico-laboratory correlation is advised. No corine-cholecystic collections. Bile Ducts: Intrahepatic and extrahepatic bile ducts are normal in caliber. The common bile duct is normal in caliber with no evidence of strictures or filling defects. No evidence of choledocholithiasis. Pancreas: Normal size and contour. Homogeneous signal intensity on T2-weighted images. No masses or cystic lesions. Pancreatic Duct: The pancreatic duct is normal in caliber. No evidence of ductal dilatation or filling defects. Spleen: Normal size and appearance. Homogeneous signal intensity. Kidneys: Normal size, shape, and position of both kidneys. Homogeneous signal intensity on T2-weighted images. No renal stones, masses, or hydronephrosis. Adrenal Glands: Normal size and morphology bilaterally. No adrenal masses. Surrounding Structures: No evidence of free fluid or abnormal fluid collections in the abdomen. Normal appearance of the visualized bowel loops. IMPRESSION: 1. Gallbladder: Mildly thickened, edematous wall 4 -5mm with multiple intraluminal stones ranging from 3-8mm coupled with biliary sludge; however, not distended, concerning for acute on top of chronic calcular cholecystitis (unchanged). Cinico-laboratory correlation is advised. 2. No corine-cholecystic collections. 3. No extra- or intrahepatic biliary dilatation. No CBD stones. Electronically signed by Jonathon South 04-22-2025 06:44 AM
[2025-04-22 07:59] LABS: Hemoglobin A1C 5.7 % (4.5-5.6)
--- NOTE | 2025-04-22 08:46 | Hospitalist Progress Note ---
Date of Service April 22, 2025 Assessment & Plan (1) Acute cholecystitis: Plan 65 year old female with PMH significant for prediabetes, dyslipidemia, TON, hiatal hernia with GERD, and osteoarthritis of both knees who presented to the ED on 04/21/2025 with abdominal pain and N/V/D. She is admitted for acute cholecystitis. Acute cholecystitis Patient presented with abdominal pain and associated N/V/D Did not meet criteria for sepsis on admission CTAP revealed distended gallbladder with few soft calculi with mildly thickened edematous wall suggestive of calculus cholecystitis Gallbladder ultrasound revealed no dilation of CBD and no evidence of biliary obstruction MRCP revealed no corine-cholecystic collections or biliary dilatation or CBD stones Continue Zon Surgery consulted and recommending ERCP so patient is being transferred to [facility] Hyperbilirubinemia Elevated LFTs Hepatomegaly Total bilirubin 2.7, AST 308, ALT 027, alk phos 122 today all increased from yesterday Gallbladder US noted hepatomegaly with fatty infiltration Diarrhea Stool studies pending collection Hiatal hernia with GERD Continue famotidine TON Does not wear CPAP DVT Prophylaxis: SCDs Code Status: FULL CODE PCP: Kathleen Zheng Patient seen in collaboration with Dr Vazquez. Please see addendum. Admission and Anticipated Discharge Date Admission Date: April 22, 2025 Results & Data Results & Data Vital Signs (Past 12 Hours) Vital Signs Temp Pulse Pulse Resp BP BP Pulse Ox 04/22/25 07:06 60 04/22/25 07:00 74 23 126/67 96 04/22/25 04:00 68 19 128/42 L 92 04/22/25 02:59 75 04/22/25 02:00 74 17 138/70 97 04/21/25 23:09 73 04/21/25 22:48 97 04/21/25 22:43 36.8 C 80 18 155/98 H 96 O2 Del Method 04/22/25 07:06 04/22/25 07:00 Room Air 04/22/25 04:00 Room Air 04/22/25 02:59 04/22/25 02:00 Room Air 04/21/25 23:09 04/21/25 22:48 Room Air 04/21/25 22:43 Room Air Laboratory Results Short CBC 04/21/25 04/22/25 Range/Units 23:39 04:32 WBC 9.86 6.88 (4.8-10.8) K/ul Hgb 13.6 13.2 (12.0-16.0) g/dl Hct 41.8 39.6 (37.0-47.0) % Plt Count 190 189 (130-400) K/uL BMP 04/21/25 04/22/25 23:39 04:32 Sodium 138 141 Potassium 4.2 4.2 Chloride 103 108 H Carbon Dioxide 26 25 BUN 15 12 Creatinine 0.74 0.62 Glucose 149 H 152 H Calcium 9.4 8.9 Liver Function 04/21/25 04/22/25 Range/Units 23:39 04:32 Total Bilirubin 1.9 H 2.7 H (0.2-1.0) mg/dl AST 105 H 308 H (13-39) U/L ALT 85 H 207 H (7-52) U/L Alkaline Phosphatase 117 H 122 H (34-104) U/L Albumin 4.1 3.8 (3.4-5.0) gm/dl Urine 04/21/25 Range/Units 23:55 Urine Color Yellow Urine Appearance Clear (Clear) Urine pH 6.0 (4.5-7.5) Ur Specific [place] >= 1.030 (1.000-1.030) Urine Protein Negative (Negative) Urine Glucose (UA) Negative (Negative) I have independently reviewed and interpreted patient's labs including CBC and CMP.
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
--- NOTE | 2025-04-22 09:56 | Electrocardiogram Report ---
Test Reason : Blood Pressure : */* mmHG Vent. Rate : 72 BPM Atrial Rate : 72 BPM P-R Int : 158 ms QRS Dur : 88 ms QT Int : 394 ms P-R-T Axes : 35 11 20 degrees QTcB Int : 431 ms Normal sinus rhythm Low voltage QRS Borderline ECG When compared with ECG of 16-Nov-2019 10:03, No significant change was found Confirmed by Chinmay Duval ([id number]) on 04/22/2025 9:55:55 AM Referred By: REFERRED SELF Confirmed By: Chinmay Duval
[2025-04-22] MEDS: PIPERACILLIN/TAZOBACTAM 4.5 GM/100 ML BAG IV SCH (10:58)
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
[2025-04-23 12:57] LABS: Hepatitis A Antibody IgM NON-REACTIVE (NON-REACTIVE); Hepatitis B Core Antibody IgM NON-REACTIVE (NON-REACTIVE)
== END 2025-04-22 15:23 | disposition short-term general hospital (02) | DRG 445 ==
LOC: ED 22:40 → EDINP 04-22 03:55